=== PATIENT | female | born 1930 | race Caucasian/White ===

== ENCOUNTER 2018-11-23 23:46 | Inpatient (IN) | payer SELFPAY ==
[~2018-11-23] VITALS: Ht 162.6 cm; Wt 61.5 kg
[2018-11-24] VITALS (13 sets, daily range): BP systolic 94–127; BP diastolic 74–90; Ht 162.6 cm; Wt 61.5 kg
[2018-11-24] MEDS ORDERED: POTASSIUM CHLO10 ME1 PO
[2018-11-24] MEDS ORDERED: TORSEMIDE20 MG PO (00:01)
[2018-11-24] MEDS ORDERED: OMEPRAZOLE40 MG PO (00:02)
[2018-11-24] MEDS ORDERED: DEMADEX20 MG PO (00:02)
[2018-11-24] MEDS ORDERED: XARELTO10 MG PO (00:02)
[2018-11-24] MEDS ORDERED: SYNTHROID75 MCG PO (00:03)
[2018-11-24] MEDS ORDERED: BUSPAR 15 MG TA15 MG PO (00:04)
[2018-11-24] MEDS ORDERED: TYLENOL W/CODEI1 TAB PO (00:04)
[2018-11-24] MEDS ORDERED: TOPROL XL25 MG PO (00:04)
[2018-11-24 00:17] LABS: BASOPHILS 0.4 % (0-2); EOSINOPHILS 1.7 % (0-7); HEMATOCRIT 31.3 % (36.0-48.0); HEMOGLOBIN 9.6 g/dL (12-16); IMMATURE GRANULOCYTES 0.2 % (0-5); LYMPHOCYTES 21.7 % (15-50); MCH 27.6 pg (26.0-34.0); MCHC 30.7 g/dL (31.0-37.0); MCV 89.9 fL (80.0-100.0); MEAN PLATELET VOLUME 9.2 fL (7.4-10.4); MONOCYTES 15.8 % (2-11); NEUTROPHILS 60.2 % (40-80); PLATELET COUNT 156 10x3/uL (130-400); RBC 3.48 10x6/uL (4.00-5.40); RDW 18.2 % (11.5-14.5); WBC 5.4 10x3/uL (4.8-10.8)
[2018-11-24 00:29] LABS: APTT 33.2 SECONDS (22.8-39.4); INR 1.87 (0.85-1.17); PROTIME 20.9 SECONDS (11.6-15.0)
[2018-11-24 00:30] LABS: ALBUMIN 3.5 g/dL (3.4-5.0); ALKALINE PHOSPHATASE 126 U/L (46-116); ALT (SGPT) 19 U/L (10-68); BILIRUBIN - TOTAL 1.35 mg/dL (0.2-1.3); CALC OSMOLALITY 288 mosm/kg (275-300); CALCIUM 8.5 mg/dL (8.5-10.1); CARBON DIOXIDE 35.1 mmol/L (21.0-32.0); CHLORIDE - SERUM 101 mmol/L (98-107); CREATININE - SERUM 1.3 mg/dL (0.6-1.3); GLUCOSE 110 mg/dL (74-106); POTASSIUM - SERUM 4.4 mmol/L (3.5-5.1); PROTEIN - SERUM 6.9 g/dL (6.4-8.2); SODIUM 142 mmol/L (136-145); UREA NITROGEN 27 mg/dL (7-18); eGFR NON AFRICAN AMERICAN 41 mL/min (90-120)
[2018-11-24 00:46] LABS: CKMB 1.2 U/L (0.0-3.6); CREATINE KINASE 55 UL (21-215); MAGNESIUM - SERUM 2.1 mg/dL (1.8-2.4); TROPONIN-I 0.024 ng/mL (0.000-0.060)
--- NOTE | 2018-11-24 02:30 | NUR ---
PATIENT ARRIVED UNIT VIA STRETCHER ACCOMPANIED BY ER STAFF. PATIENT PLACED ON ICU MONITORS - ADMISSION ASSESSMENT COMPLETED SEE FLOWSHEET. PATIENT RECEIVED WATER PER REQUEST. HISTORY COMPLETED AT THIS TIME. PATIENT REQUESTING PAIN MEDICATIONS FOR CHRONIC BACK PAIN, NOTHING ORDERED AT THIS TIME. ICU ROOM 2308 HAS NO EQUIPMENT TO MONITOR SPO2 OR TO HOOK THE PATIENT UP TO SCD EQUIPMENT. EQUIPMENT NEED COULD NOT BE FOUND IN INTENSIVE CARE DEPARTMENT. PATIENT DOES NOT HAVE CONTINOUS PULSE OX MONITORING. THIS NURSE SPOT CHECKING WITH PERSONAL PORTABLE PULSE OX. VSS OC
--- NOTE | 2018-11-24 03:39 | NUR ---
2 RN VERIFICATION PATIENT DOES NOT WANT ANY RESUSITATION MEASURES. ELISA DAVIS RN WITNESS.
--- NOTE | 2018-11-24 05:25 | NUR ---
PATIENT UP TO BEDSIDE COMMODE AT THIS TIME
[2018-11-24 05:31] LABS: BASOPHILS 0.2 % (0-2); EOSINOPHILS 1.6 % (0-7); HEMATOCRIT 29.5 % (36.0-48.0); HEMOGLOBIN 9.1 g/dL (12-16); IMMATURE GRANULOCYTES 0.2 % (0-5); LYMPHOCYTES 22.5 % (15-50); MCH 27.7 pg (26.0-34.0); MCHC 30.8 g/dL (31.0-37.0); MCV 89.9 fL (80.0-100.0); MEAN PLATELET VOLUME 9.9 fL (7.4-10.4); MONOCYTES 16.5 % (2-11); PLATELET COUNT 160 10x3/uL (130-400); RBC 3.28 10x6/uL (4.00-5.40); RDW 18.2 % (11.5-14.5); WBC 6.2 10x3/uL (4.8-10.8)
[2018-11-24 05:42] LABS: CALCIUM 8.3 mg/dL (8.5-10.1); CARBON DIOXIDE 34.9 mmol/L (21.0-32.0); CREATININE - SERUM 1.1 mg/dL (0.6-1.3); POTASSIUM - SERUM 3.9 mmol/L (3.5-5.1)
--- NOTE | 2018-11-24 06:48 | NUR ---
FRANC CHANDLER AT BEDSIDE - NEW ORDERS RECEIVED
--- NOTE | 2018-11-24 07:00 | NUR ---
SHIFT ASSESSMENT COMPLETED, PT CARE ASSUMED, MONITORS ON AND WORKING, VITALS STABLE, PT AWAKE AND ALERT ORIENTED, PT STATES WISHES INCLUDING WANTING TO GO HOME, PT DOES NOT WISH TO BE IN HOSPITAL, PT STATES UNDERSTADING OF THE RISKS INVOLVED IN LEAVING THE HOSPITAL, PT STATES "AT ALMOST 89 YEARS OLD THE WORST THING THAT COULD HAPPEN IS FOR ME TO BE STUCK IN ICU." PT UP AD ANTONIO TO BEDSIDE COMMODE, CALL LIGHT WITHIN REACH, WILL CONTINUE TO OBSERVE.
--- NOTE | 2018-11-24 08:00 | NUR ---
NOTIFIED MD AND TYPING TEACHER CONCERNING PTS DESIRE TO GO HOME, AMA.
--- NOTE | 2018-11-24 09:00 | NUR ---
DR CAMARENA AT BEDSIDE, SMALL HEMMORHOIDS NOTED.
[2018-11-24 09:26] LABS: APTT 31.7 SECONDS (22.8-39.4); PROTIME 17.4 SECONDS (11.6-15.0)
[2018-11-24 09:28] LABS: INR 1.48 (0.85-1.17)
[2018-11-24 09:51] LABS: MAGNESIUM - SERUM 2.2 mg/dL (1.8-2.4); THYROID STIMULATING HORMONE 0.82 uIU/mL (0.36-3.74)
--- NOTE | 2018-11-24 10:00 | NUR ---
LEFT FA PIV DC'D WITH TIP INTACT, PT TOLERATED WELL
--- NOTE | 2018-11-24 10:00 | NUR ---
PT UP TO BEDSIDE COMMODE, NO BLEEDING AT THIS TIME, PT RIDE ARRIVED AND AMA PAPER SIGNED, MD AWARE.
--- NOTE | 2018-11-25 09:05 | MORECARE ---
CASE MANAGEMENT DISCHARGE SUMMARY PATIENT: DAVID EDEN UNIT: [id number] ADM DATE: 11/24/18 AGE: 88 : 34 SEX: F ROOM/BED: D.2308 AUTHOR: IMAN KIRK PHYSICIAN: REFERRING PHYSICIAN: ELIZA GARCIA MD DATE OF SERVICE: 11/25/18 Discharge Plan Patient Name: DAVID EDEN [facility] [facility] 1930 Planned Disposition: Anticipated Discharge Date: Discharge Date: 11/24/2018 Expected LOS: Initial Reviewer: [id number] Initial Review Date: 11/24/2018 Generated: 11/25/18 10:05 am Patient Name: DAVID EDEN Page [id number] at 0905 All edits/amendments must be made on the electronic document DICTATION DATE: 11/25/18903 CREMATORY ATTENDANT: ANNE 11/25/18903 RPT#: [id number] DC DATE:11/24/18 STATUS: DIS IN [facility] [address] [place] [address] END OF REPORT
== END 2018-11-24 10:30 | disposition left against medical advice (07) | DRG 378 ==
LOC: D.ER 23:46 → D.EDHOLD 11-24 02:00 → D.ICU 11-24 02:00
PROVIDERS: Family Medicine; Internal Medicine Nephrology; ADMIT Family Medicine; ATTEND Family Medicine
DX: K92.2 Gastrointestinal hemorrhage, unspecified (principal); D62 Acute posthemorrhagic anemia; J96.11 Chronic respiratory failure with hypoxia; N17.9 Acute kidney failure, unspecified; D68.9 Coagulation defect, unspecified; K64.9 Unspecified hemorrhoids; I48.91 Unspecified atrial fibrillation; I50.9 Heart failure, unspecified; J44.9 Chronic obstructive pulmonary disease, unspecified; E03.9 Hypothyroidism, unspecified; K21.9 Gastro-esophageal reflux disease without esophagitis; F41.9 Anxiety disorder, unspecified; Z66 Do not resuscitate